=== PATIENT | male | born 1985 | race American Indian/Alaskan Native ===

== ENCOUNTER 2020-06-03 11:49 | Emergency (ER) | payer SELFPAY ==
[2020-06-03 12:04] VITALS: BP 141/88
[2020-06-03] MEDS ORDERED: predniSONE 20 MG TAB PO ONE (12:04)
[2020-06-03] MEDS ORDERED: HYDROcodone/ACETAMINOPHEN 10-325MG TAB PO ONE (12:04)
[2020-06-03] MEDS ORDERED: KETOROLAC 60 MG/2 ML INJ IM ONE (12:04)
--- NOTE | 2020-06-03 12:40 | Emergency Department Report ---
ED Back Pain/Injury HPI - General Chief Complaint: Back Pain/Injury Stated Complaint: LOW BACK PAIN/WORK REALTED Time Seen by Provider: 06/03/20 12:03 Source: patient Limitations: No Limitations - History of Present Illness Initial Comments: This is a 35-year-old male nontoxic, well nourished in appearance, no acute signs of distress presents to the ED with c/o of lower back pain. Patient stated that while he was at work boxes fell to his mid and lower back area earlier today. Patient denies any radiation of pain. Denies any head or neck pain. Patient denies any other injuries or trauma trauma. Denies any bladder or bowel instability. Patient denies any urinary symptoms. Denies any fever, chills, nausea, vomiting, headache, stiff neck, chest pain or shortness of breath. Patient denies any numbness or tingling. Denies any allergies. Denies significant past medical history. MD Complaint: back pain -: This morning Place: work Radiation: none Severity: mild Severity scale (0 -10): 8 Quality: aching Consistency: constant Improves With: immobilization, sitting upright Worsens With: movement, walking Associated Symptoms: denies other symptoms. denies: confusion, weakness, chest pain, numbness, difficulty walking, cough, difficulty urinating, diaphoresis, fever/chills, constipation, headaches, abdominal pain, loss of appetite, malaise, nausea/vomiting, rash, seizure, shortness of breath, syncope - Related Data Previous Rx's Medication Instructions Recorded Last Taken Type Cyclobenzaprine HCl [Flexeril 5 MG 10 mg PO QHS PRN #10 tab 06/03/20 Unknown Rx TAB] Naproxen 500 mg PO Q12H PRN #20 tablet 06/03/20 Unknown Rx Allergies Allergy/AdvReac Type Severity Reaction Status Date / Time No Known Allergies Allergy Unverified 06/03/20 12:00 ED Review of Systems ROS: Stated complaint: LOW BACK PAIN/WORK REALTED Other details as noted in HPI Comment: All other systems reviewed and negative Constitutional: denies: chills, fever Eyes: denies: eye pain, eye discharge, vision change ENT: denies: ear pain, throat pain Respiratory: denies: cough, shortness of breath, wheezing Cardiovascular: denies: chest pain, palpitations Endocrine: no symptoms reported Gastrointestinal: denies: abdominal pain, nausea, diarrhea Genitourinary: denies: urgency, dysuria Musculoskeletal: back pain. denies: joint swelling, arthralgia Skin: denies: rash, lesions Neurological: denies: headache, weakness, paresthesias Psychiatric: denies: anxiety, depression Hematological/Lymphatic: denies: easy bleeding, easy bruising ED Past Medical Hx - Past Medical History Previous Medical History?: No - Surgical History Past Surgical History?: No - Social History Smoking Status: Never Smoker Substance Use Type: None - Medications Home Medications: Home Medications Medication Instructions Recorded Confirmed Last Taken Type Cyclobenzaprine HCl [Flexeril 5 MG 10 mg PO QHS PRN #10 tab 06/03/20 Unknown Rx TAB] Naproxen 500 mg PO Q12H PRN #20 tablet 06/03/20 Unknown Rx ED Physical Exam - General Limitations: No Limitations General appearance: alert, in no apparent distress - Head Head exam: Present: atraumatic, normocephalic - Eye Eye exam: Present: normal appearance - Neck Neck exam: Present: normal inspection, full ROM - Respiratory Respiratory exam: Present: normal lung sounds bilaterally. Absent: respiratory distress, wheezes, rales, rhonchi, stridor, chest wall tenderness, accessory muscle use, decreased breath sounds, prolonged expiratory - Cardiovascular Cardiovascular Exam: Present: regular rate, normal rhythm, normal heart sounds. Absent: bradycardia, tachycardia, irregular rhythm, systolic murmur, diastolic murmur, rubs, gallop - GI/Abdominal GI/Abdominal exam: Present: soft. Absent: distended, tenderness - Extremities Exam Extremities exam: Present: normal inspection, full ROM, normal capillary refill. Absent: tenderness - Back Exam Back exam: Present: normal inspection, full ROM, paraspinal tenderness (Left thoracic and lumbar paraspinal). Absent: tenderness, CVA tenderness (R), CVA tenderness (L), muscle spasm, vertebral tenderness, rash noted - Expanded Back Exam Expanded Back exam: Absent: saddle anesthesia Back exam: Negative Straight Leg Raising: Left, Right - Neurological Exam Neurological exam: Present: alert, oriented X3, normal gait - Psychiatric Psychiatric exam: Present: normal affect, normal mood - Skin Skin exam: Present: warm, dry, intact, normal color. Absent: rash ED Course Vital Signs 06/03/20 12:00 Temperature 98.5 F Pulse Rate 74 Respiratory 18 Rate Blood Pressure 141/88 O2 Sat by Pulse 99 Oximetry - Reevaluation(s) Reevaluation #1: 06/03/20 12:39 Patient is speaking in full sentences with no signs of distress noted. ED Medical Decision Making - Radiology Data Referring Physician: ALANNA ABEL Patient Name: ABBIE DONALDSON Date of : 1985 Sex: Male Report Date: 2020-06-03 Report Status: [place] [address] Cat Scan Report Signed Patient: ABBIE DONALDSON MR#: [id number] 6 : 1985 Acct:[id number] Age/Sex: 35 / M ADM Date: 06/03/20 Loc: ED Attending Dr: Ordering Physician: ALANNA ABEL NP Date of Service: 06/03/20 Procedure(s): CT thoracic spine wo con Accession Number(s): [id number] cc: ALANNA ABEL NP CT THORACIC SPINE WITHOUT CONTRAST INDICATION: pain s/p direct blow. TECHNIQUE: Axial imaging performed through the thoracic spine without the use of contrast. Sagittal and coronal reconstructed images were also reviewed. All CT scans at this location are performed using CT dose reduction for ALARA by means of automated exposure control. COMPARISON: None FINDINGS: Alignment: Spinal alignment is normal. Bones: There is no acute osseous abnormality. Significant degenerative changes. Bone lesion. Soft tissues: No acute or significant incidental soft tissue abnormality. IMPRESSION: No acute abnormality. CT LUMBAR SPINE WITHOUT CONTRAST INDICATION: pain s/p direct blow. TECHNIQUE: Axial imaging performed through the lumbar spine without the use of contrast. Sagittal and coronal reconstructed images were also reviewed. All CT scans at this location are performed using CT dose reduction for ALARA by means of automated exposure control. COMPARISON: None FINDINGS: Alignment: Spinal alignment is normal. Bones: There is no acute osseous abnormality. No significant degenerative changes. Bone lesion. The visualized SI joints demonstrate early osteoarthritic changes. Soft tissues: No acute or significant incidental soft tissue abnormality. IMPRESSION: No acute abnormality. Signer Name: Benito Sommer Jr, MD Signed: 06/03/2020 1:51 PM Workstation Name: [id number] Transcribed By: TTR Dictated By: BENITO SOMMER JR, MD Electronically Authenticated By: BENITO SOMMER JR, MD Signed Date/Time: 06/03/20 1351 DD/ 1347 TD/TT: Referring Physician: ALANNA ABEL Patient Name: ABBIE DONALDSON Date of : 1985 Sex: Male Report Date: 2020-06-03 Report Status: [place] [address] Cat Scan Report Signed Patient: ABBIE DONALDSON MR#: [id number] 6 : 1985 Acct:[id number] Age/Sex: 35 / M ADM Date: 06/03/20 Loc: ED Attending Dr: Ordering Physician: ALANNA ABEL NP Date of Service: 06/03/20 Procedure(s): CT lumbar spine wo con Accession Number(s): [id number] cc: ALANNA ABEL NP CT THORACIC SPINE WITHOUT CONTRAST INDICATION: pain s/p direct blow. TECHNIQUE: Axial imaging performed through the thoracic spine without the use of contrast. Sagittal and coronal reconstructed images were also reviewed. All CT scans at this location are performed using CT dose reduction for ALARA by means of automated exposure control. COMPARISON: None FINDINGS: Alignment: Spinal alignment is normal. Bones: There is no acute osseous abnormality. Significant degenerative changes. Bone lesion. Soft tissues: No acute or significant incidental soft tissue abnormality. IMPRESSION: No acute abnormality. CT LUMBAR SPINE WITHOUT CONTRAST INDICATION: pain s/p direct blow. TECHNIQUE: Axial imaging performed through the lumbar spine without the use of contrast. Sagittal and coronal reconstructed images were also reviewed. All CT scans at this location are performed using CT dose reduction for ALARA by means of automated exposure control. COMPARISON: None FINDINGS: Alignment: Spinal alignment is normal. Bones: There is no acute osseous abnormality. No significant degenerative changes. Bone lesion. The visualized SI joints demonstrate early osteoarthritic changes. Soft tissues: No acute or significant incidental soft tissue abnormality. IMPRESSION: No acute abnormality. Signer Name: Benito Sommer Jr, MD Signed: 06/03/2020 1:51 PM Workstation Name: [id number] Transcribed By: TTR Dictated By: BENITO SOMMER JR, MD Electronically Authenticated By: BENITO SOMMER JR, MD Signed Date/Time: 06/03/20 1351 DD/ 1347 TD/TT: - Medical Decision Making This is a [age]-year-old male that presents with low back strain. Patient is stable was examined by me. There is no spinal tenderness. There is no cauda equina syndrome during examination. No bladder or bowel instability. Patient is notified of the CT results with no questions noted by the patient. Patient received Toradol 60 mg IM, prednisone, [place] in the ED which stated that his symptoms has resolved and subsided. Patient stated family member will drive the patient home after discharge due to possible drowsiness of [place]. Patient is discharged with muscle relaxant and Naproxen. Patient was instructed not to operate any machinery while taking muscle relaxant as they cause her drowsiness. Patient was referred to Follow-up with a primary care doctor in 3-5 days or if symptoms worsen and continue return to emergency room as soon as possible. At time of discharge, the patient does not seem toxic or ill in appearance. No acute signs of distress noted. Patient agrees to discharge treatment plan of care. No further questions noted by the patient. This chart is dictated with using [employer] Dictation Program Critical care attestation.: If time is entered above; I have spent that time in minutes in the direct care of this critically ill patient, excluding procedure time. ED Disposition Clinical Impression: Low back strain Qualifiers: Encounter type: initial encounter Qualified Code(s): S39.012A - Strain of muscle, fascia and tendon of lower back, initial encounter Disposition: - TO HOME OR SELFCARE Is pt being admited?: No Does the pt Need Aspirin: No Condition: Stable Instructions: Lumbosacral Strain, Cyclobenzaprine tablets Additional Instructions: Follow-up with your primary care doctor in 3-5 days or if symptoms worsen such a s bladder or bowel stability, chest pain, short of breath, numbness or tingling sensation in extremities, headache, dizziness, visual changes, nausea vomiting, or abdominal pain, return back to emergency room as was possible. Take naproxen and Flexeril as prescribed. Do not operate heavy machinery while taking Flexeril due to sedation Prescriptions: Cyclobenzaprine HCl [Flexeril 5 MG TAB] 10 mg PO QHS PRN #10 tab PRN Reason: Muscle Spasm Naproxen 500 mg PO Q12H PRN #20 tablet PRN Reason: Pain , Severe (7-10) Referrals: PRIMARY CAREMD [Primary Care Provider] - 3-5 Days ZEB FIGUEROA MD [Staff Physician] - 3-5 Days Forms: Work/School Release Form(ED) Time of Disposition: 14:14
--- NOTE | 2020-06-03 13:56 | Cat Scan Report ---
CT THORACIC SPINE WITHOUT CONTRAST INDICATION: pain s/p direct blow. TECHNIQUE: Axial imaging performed through the thoracic spine without the use of contrast. Sagittal and coronal reconstructed images were also reviewed. All CT scans at this location are performed us ing CT dose reduction for ALARA by means of automated exposure control. COMPARISON: None FINDINGS: Alignment: Spinal alignment is normal. Bones: There is no acute osseous abnormality. Significant degenerative changes. Bone lesion. Soft tissues: No acute or significant incidental soft tissue abnormality. IMPRESSION: No acute abnormality. CT LUMBAR SPINE WITHOUT CONTRAST INDICATION: pain s/p direct blow. TECHNIQUE: Axial imaging performed through the lumbar spine without the use of contrast. Sagittal a nd coronal reconstructed images were also reviewed. All CT scans at this location are performed usin g CT dose reduction for ALARA by means of automated exposure control. COMPARISON: None FINDINGS: Alignment: Spinal alignment is normal. Bones: There is no acute osseous abnormality. No significant degenerative changes. Bone lesion. Th e visualized SI joints demonstrate early osteoarthritic changes. Soft tissues: No acute or significant incidental soft tissue abnormality. IMPRESSION: No acute abnormality. Signer Name: Benito Sommer Jr, MD Signed: 06/03/2020 1:51 PM Workstation Name: [id number]
== END 2020-06-03 14:25 | disposition home or self-care (01) ==
LOC: ED 11:49
DX: S39.012A Strain of muscle, fascia and tendon of lower back, initial encounter (principal); Z79.899 Other long term (current) drug therapy; X58.XXXA Exposure to other specified factors, initial encounter; Y93.89 Activity, other specified; Y92.89 Other specified places as the place of occurrence of the external cause; Y99.8 Other external cause status
CPT/HCPCS: 72128; 72131; 96372; 99284; J1885; J7512; Q9967